=== PATIENT | female | born 2000 | race Caucasian/White ===

== ENCOUNTER 2018-01-25 00:11 | Emergency (ER) | payer MEDICAID, MEDICARE ==
[~2018-01-25] VITALS: Ht 157.5 cm; Wt 59.0 kg
[2018-01-25] MEDS ORDERED: ONDANSETRON 4MG ODT PO STA (00:44)
[2018-01-25] MEDS ORDERED: MAGNESIUM/ALUMINUM HYDROXIDE/SIMETHICONE 30ML UDC PO STA (00:44)
[2018-01-25] MEDS ORDERED: FAMOTIDINE 20MG TABLET PO ONE (00:45)
[2018-01-25 01:31] LABS: BASOPHILS % 0.9 % (0.0-2.0); EOSINOPHILS % 1.1 % (0.0-5.0); HEMATOCRIT. 34.8 % (36.0-48.0); HEMOGLOBIN. 11.8 g/dL (12.0-16.0); LYMPHOCYTES % 44.1 % (20.0-50.0); MEAN CORPUSCULAR HEMOGLOBIN 31.9 pg (28.0-32.0); MEAN CORPUSCULAR VOLUME 93.9 fL (81.0-99.0); MEAN PLATELET VOLUME 7.2 fl (7.4-10.4); MONOCYTES % 8.7 % (2.0-8.0); NEUTROPHILS % 45.2 % (40.0-76.0); PLATELET 443 x1000/uL (130-400); RED CELL DISTRIBUTION WIDTH 13.1 % (11.6-14.6)
[2018-01-25 01:32] LABS: CHLORIDE 104 mEq/L (98-107)
[2018-01-25 01:35] LABS: INR 1.1; PROTHROMBIN TIME 10.7 sec (9.1-11.1)
[2018-01-25 01:43] LABS: B-HCG QUANTITATIVE 4 mIU/mL (<3)
[2018-01-25 04:22] LABS: CLARITY URINE CLEAR (CLEAR); COLOR URINE YELLOW (YELLOW); KETONES URINE NEGATIVE (NEGATIVE); LEUKOCYTE ESTERASE URINE TRACE (NEGATIVE); NITRITE URINE NEGATIVE (NEGATIVE); OCCULT BLOOD URINE TRACE (NEGATIVE); PH URINE 6.5 (4.5-8.0); PROTEIN URINE 4+ (NEGATIVE); SPECIFIC GRAVITY URINE 1.023 (1.005-1.030)
[2018-01-25 05:40] VITALS: BP 122/64
== END 2018-01-25 05:46 | disposition home or self-care (01) ==
LOC: ER 00:11
DX: O86.20 Urinary tract infection following delivery, unspecified (principal); O99.63 Diseases of the digestive system complicating the puerperium; K80.20 Calculus of gallbladder without cholecystitis without obstruction; O16.5 Unspecified maternal hypertension, complicating the puerperium; O90.89 Other complications of the puerperium, not elsewhere classified; M54.6 Pain in thoracic spine
CPT/HCPCS: 36415; 76700; 80053; 81003; 83690; 84702; 85025; 85610; 99284; Q0162

== ENCOUNTER 2018-02-01 15:39 | Emergency (ER) | payer MEDICARE ==
[~2018-02-01] VITALS: Ht 157.5 cm; Wt 57.0 kg
[2018-02-01 15:46] VITALS: BP 135/78
== END 2018-02-01 18:39 | disposition left against medical advice (07) ==
LOC: ER 15:39
DX: R10.11 Right upper quadrant pain (principal); R11.10 Vomiting, unspecified; D64.9 Anemia, unspecified; Z53.21 Procedure and treatment not carried out due to patient leaving prior to being seen by health care provider

== ENCOUNTER 2018-02-17 07:56 | Inpatient (IN) | payer MEDICARE ==
[~2018-02-17] VITALS: Ht 157.5 cm; Wt 54.0 kg
[2018-02-17 08:37] LABS: CLARITY URINE CLOUDY (CLEAR); KETONES URINE NEGATIVE (NEGATIVE); LEUKOCYTE ESTERASE URINE 1+ (NEGATIVE); NITRITE URINE NEGATIVE (NEGATIVE); OCCULT BLOOD URINE NEGATIVE (NEGATIVE); PH URINE 5.5 (4.5-8.0); PROTEIN URINE 2+ (NEGATIVE); SPECIFIC GRAVITY URINE 1.014 (1.005-1.030)
[2018-02-17 08:38] LABS: COLOR URINE DARK YELLOW (YELLOW)
[2018-02-17] MEDS ORDERED: FAMOTIDINE 20MG TABLET PO ONE (09:00)
[2018-02-17] MEDS ORDERED: KETOROLAC 60MG/2ML VIAL IM ONE (09:00)
[2018-02-17 10:12] LABS: BASOPHILS % 0.4 % (0.0-2.0); HEMATOCRIT. 34.9 % (36.0-48.0); HEMOGLOBIN. 11.7 g/dL (12.0-16.0); LYMPHOCYTES % 18.2 % (20.0-50.0); MEAN CORPUSCULAR HEMOGLOBIN 30.9 pg (28.0-32.0); MEAN CORPUSCULAR VOLUME 92.2 fL (81.0-99.0); MEAN PLATELET VOLUME 7.1 fl (7.4-10.4); MONOCYTES % 5.8 % (2.0-8.0); NEUTROPHILS % 74.6 % (40.0-76.0); PLATELET 433 x1000/uL (130-400); RED BLOOD CELL COUNT 3.79 mill/uL (4.2-5.4); RED CELL DISTRIBUTION WIDTH 13.1 % (11.6-14.6)
[2018-02-17 10:18] LABS: CHLORIDE 107 mEq/L (98-107)
[2018-02-17 10:20] LABS: INR 1.1; PROTHROMBIN TIME 11.2 sec (9.1-11.1)
[2018-02-17] MEDS ORDERED: PIPERACILLIN SODIUM/TAZOBACTAM 4.5 G in DEXT 5% WATER 100 ML IV SCH (11:30)
[2018-02-17] MEDS ORDERED: FENTANYL CITRATE/PF 50MCG/ML 2ML VIAL IV ONE (12:00)
[2018-02-17] MEDS ORDERED: IPRATROPIUM/ALBUTEROL 0.5-3(2.5)MG/3ML NEB INH PRN (12:45)
[2018-02-17] MEDS ORDERED: PIPERACILLIN/TAZ 3.375G PREMIX 50 ML IV SCH (12:45)
[2018-02-17] MEDS ORDERED: DIPHENHYDRAMINE 50MG/ML VIAL IV PRN (12:45)
[2018-02-17] MEDS ORDERED: ACETAMINOPHEN 650MG SUPP PR PRN (12:45)
[2018-02-17 13:25] LABS: *AMPHETAMINES SCREEN URINE NEGATIVE (NEGATIVE); *BARBITURATES SCREEN URINE NEGATIVE (NEGATIVE); *BENZODIAZEPINES SCREEN URINE NEGATIVE (NEGATIVE); *COCAINE SCREEN URINE NEGATIVE (NEGATIVE); METHADONE URINE SCREEN NEGATIVE (NEGATIVE); PHENCYCLIDINE URINE SCREEN NEGATIVE (NEGATIVE)
[2018-02-17 13:26] LABS: OPIATES URINE SCREEN NEGATIVE (NEGATIVE)
[2018-02-17 13:28] LABS: CANNABINOID URINE SCREEN PRESUMTIVE POSITIVE (NEGATIVE)
[2018-02-17 13:48] VITALS: BP 110/65
[2018-02-17] MEDS: HYDROMORPHONE HCL/PF 2MG/ML CPJ IV PRN ×3 (14:08→20:58)
[2018-02-17] MEDS: ONDANSETRON HCL 4MG/2ML INJ IV PRN ×2 (14:08→20:56)
[2018-02-17] MEDS: PANTOPRAZOLE SODIUM 40 MG/VIAL IV SCH (14:08)
[2018-02-17] MEDS: DEXT 5%/0.45% NACL 1000ML 1,000 ML IV SCH (14:09)
[2018-02-17 15:34] VITALS: BP 105/69
[2018-02-17 16:00] VITALS: BP 104/57
[2018-02-17] MEDS: ENOXAPARIN 40MG/0.4ML SYR SUBCUT SCH (17:30)
[2018-02-17] MEDS: PIPERACILLIN/TAZ 3.375G PREMIX 50 ML IV SCH (17:43)
[2018-02-17 18:13] LABS: HCG SCREEN NEGATIVE
[2018-02-17 20:00] VITALS: BP 103/61
[2018-02-18] VITALS: BP 101/59
[2018-02-18] MEDS: DEXT 5%/0.45% NACL 1000ML 1,000 ML IV SCH ×3 (01:31→17:59)
[2018-02-18] MEDS: PIPERACILLIN/TAZ 3.375G PREMIX 50 ML IV SCH ×5 (01:31→23:09)
[2018-02-18] MEDS: ONDANSETRON HCL 4MG/2ML INJ IV PRN ×3 (03:32→20:59)
[2018-02-18] MEDS: HYDROMORPHONE HCL/PF 2MG/ML CPJ IV PRN ×4 (03:33→20:58)
[2018-02-18 04:00] VITALS: BP 110/67
[2018-02-18 07:08] LABS: CHLORIDE 107 mEq/L (98-107)
[2018-02-18 07:15] LABS: BASOPHILS % 0.5 % (0.0-2.0); EOSINOPHILS % 1.7 % (0.0-5.0); HEMATOCRIT. 32.7 % (36.0-48.0); LYMPHOCYTES % 29.3 % (20.0-50.0); MEAN CORPUSCULAR VOLUME 91.9 fL (81.0-99.0); MEAN PLATELET VOLUME 7.7 fl (7.4-10.4); MONOCYTES % 6.4 % (2.0-8.0); NEUTROPHILS % 62.1 % (40.0-76.0); PLATELET 401 x1000/uL (130-400); RED BLOOD CELL COUNT 3.56 mill/uL (4.2-5.4); RED CELL DISTRIBUTION WIDTH 13.1 % (11.6-14.6)
[2018-02-18 07:16] LABS: LDL CHOLESTEROL 121 mg/dL (5-100)
[2018-02-18 07:18] LABS: HDL CHOLESTEROL 40 mg/dL (40-59); T4 FREE 1.21 ng/dL (0.76-1.46)
[2018-02-18 08:00] VITALS: BP 107/67
[2018-02-18] MEDS: PANTOPRAZOLE SODIUM 40 MG/VIAL IV SCH (09:07)
[2018-02-18 12:00] VITALS: BP 114/74
[2018-02-18 16:00] VITALS: BP 110/64
[2018-02-18] MEDS: ENOXAPARIN 40MG/0.4ML SYR SUBCUT SCH (17:56)
[2018-02-18 20:00] VITALS: BP 101/57
[2018-02-19] VITALS: BP 103/66
[2018-02-19] MEDS: DEXT 5%/0.45% NACL 1000ML 1,000 ML IV SCH (02:58)
[2018-02-19 04:00] VITALS: BP 119/70
[2018-02-19] MEDS: PIPERACILLIN/TAZ 3.375G PREMIX 50 ML IV SCH (06:05)
[2018-02-19 08:00] VITALS: BP 101/55
[2018-02-19] MEDS: PANTOPRAZOLE SODIUM 40 MG/VIAL IV SCH (08:14)
[2018-02-19 10:12] LABS: CHLORIDE 107 mEq/L (98-107)
[2018-02-19 10:19] LABS: BASOPHILS % 0.7 % (0.0-2.0); HEMATOCRIT. 32.8 % (36.0-48.0); LYMPHOCYTES % 26.3 % (20.0-50.0); MEAN CORPUSCULAR VOLUME 92.2 fL (81.0-99.0); MEAN PLATELET VOLUME 7.7 fl (7.4-10.4); MONOCYTES % 7.8 % (2.0-8.0); NEUTROPHILS % 63.2 % (40.0-76.0); PLATELET 368 x1000/uL (130-400); RED BLOOD CELL COUNT 3.56 mill/uL (4.2-5.4); RED CELL DISTRIBUTION WIDTH 12.9 % (11.6-14.6)
[2018-02-19 11:11] VITALS: BP 101/55
== END 2018-02-19 11:35 | disposition home or self-care (01) ==
LOC: EDBEDREQ 11:26 → ER 11:40 → 6EST 11:56 → EDBEDREQTM 11:58 → EDBEDREQ 11:58 → ENRESERV 12:31 → 6EST 16:29
PROVIDERS: ADMIT Internal Medicine; ATTEND Internal Medicine
DX: K80.20 Calculus of gallbladder without cholecystitis without obstruction (principal); K85.10 Biliary acute pancreatitis without necrosis or infection; D64.9 Anemia, unspecified
CPT/HCPCS: 36415; 74181; 76705; 80048; 80061; 80076; 80305; 81025; 84439; 84443; 84703; 87210; 93970; 96365; 96372; 96375; 99285; C9113; J1170; J1200; J1650; J1885; J2405; J2543; J3010; J3490; J7060